=== PATIENT | female | born 1935 | race Caucasian/White ===

== ENCOUNTER 2016-07-13 18:08 | Emergency (ER) | payer MEDICARE, BC ==
--- NOTE | 2016-07-13 18:46 | PD ---
HPI Chief Complaint: Code Blue Time Seen by Provider: 18:39 Travel History International Travel<30 days: No Contact w/Intl Traveler<30days: No Traveled to known affect area: No History of Present Illness HPI This 80-year-old female is brought in local restaurant. She was eating with her son and apparently developed an obstructed airway. Her son performed a Heimlich maneuver and a piece of meat came out. She did not wake up however remained unresponsive. Paramedics were called and found the patient pulseless. CPR was initiated and the patient was given 3 doses of adrenaline. She was transported here. There is a Combitube in place. Ventilation with a Combitube has been difficult. History obtained later is that this lady has a history of heavy smoking. She has a pacemaker. She is visiting here from [place] with her son lives locally. [facility] Social History Tobacco Use: Yes Review of Systems ROS Limitations: Unresponsive Physical Exam Narrative GENERAL: Pulseless and apneic with CPR in progress SKIN: Focused skin assessment cool HEAD: Atraumatic. Normocephalic. EYES: Pupils unresponsive ENT: No nasal bleeding or discharge. NECK: Trachea midline. No JVD. CARDIOVASCULAR: No heart tones. Pacemaker in place RESPIRATORY: Persistent ventilations GASTROINTESTINAL: Abdomen soft, non-tender, nondistended. Hepatic and splenic margins not palpable. MUSCULOSKELETAL: No obvious deformities. No clubbing. No cyanosis. No edema. NEUROLOGICAL: Unresponsive MDM Medical Decision Making Medical Screen Exam Complete: Yes Emergency Medical Condition: Yes Medical Record Reviewed: Yes Differential Diagnosis Differential includes airway obstruction, hypoxia, cardiopulmonary arrest Narrative Course CPR was continued without response. Patient remained pulseless. She is pronounced been pronounced . I have advised the police that I would sign the certificate as the cause of in this case clearly appears to be airway obstruction with hypoxia secondary to meat impaction Critical Care Narrative Patient arrived with CPR in progress. CPR was continued. Patient remained pulseless. She was given repeated doses of adrenaline. She did have some brief periods that appeared to be ventricular ablation given repeated shocks without response. Pacemaker spikes were noted. Patient remained pulseless. As ventilation was quite difficult the Combitube was removed. Attempt at direct laryngoscopy showed a large piece of meat that was removed with Angela forceps. The patient was then intubated using view assisted laryngoscopy. CPR was continued. The patient has remained pulseless and has been pronounced Diagnosis Primary Impression: Hypoxia Additional Impression: Cardiopulmonary arrest Disposition: 20 Condition: Wiliam Main MD Jul 13, 2016 18:46
== END 2016-07-13 19:00 | disposition expired ==
LOC: PHED 18:08
DX: I46.9 Cardiac arrest, cause unspecified (principal); R09.02 Hypoxemia; F17.210 Nicotine dependence, cigarettes, uncomplicated; Z95.0 Presence of cardiac pacemaker
CPT/HCPCS: 92950